=== PATIENT | female | born 1990 | race African-American/Black ===

== ENCOUNTER 2019-10-08 12:16 | Emergency (ER) | payer OTHER ==
[~2019-10-08] VITALS: Ht 160 cm; Wt 40.8 kg
[~2019-10-08 12:16] MED LIST: AMOXIL250 MG ORAL; METRONIDAZOLE500 MG ORAL; RANITIDINE HCL150 MG ORAL; ZOFRAN4 MG ORAL
--- NOTE | 2019-10-08 12:30 | NUR ---
ED Nurse Note: patient walked into ED from home c/o abdominal pain and nausea, vomiting for 4 days. patient also reports she was not able to void for 3 days. patient is alert awake x4 ambulatory breathing unlabored and even, speaking in full sentences. patient placed in hospital gown.
[2019-10-08] MEDS ORDERED: Lidocaine 2% Visc 15ml soln ORAL ONE (12:45)
[2019-10-08] MEDS ORDERED: Morphine Sulfate 4mg/ml Inj (IV USE ONLY) IVP ONE (12:45)
[2019-10-08] MEDS ORDERED: Dicyclomine HCl 10mg/5ml oral soln ORAL ONE (12:45)
[2019-10-08] MEDS ORDERED: Mylanta II UD 30ml ORAL ONE (12:45)
[2019-10-08 13:10] LABS: HEMOGLOBIN 14.3 G/DL (12.0-16.0); MEAN CORPUSCULAR VOLUME 89 FL (80-99); PLATELET COUNT 294 K/UL (150-450); RED BLOOD COUNT 4.47 M/UL (4.20-5.40); RED CELL DISTRIBUTION WIDTH 10.4 % (11.6-14.8); WHITE BLOOD COUNT 13.3 K/UL (4.8-10.8)
[2019-10-08 13:20] LABS: ANION GAP 13 mmol/L (5-15); BLOOD UREA NITROGEN 22 mg/dL (7-18); CALCIUM 9.6 MG/DL (8.5-10.1); CARBON DIOXIDE 27 MMOL/L (21-32); CHLORIDE 101 MMOL/L (98-107); SODIUM 141 MMOL/L (136-145)
[2019-10-08 13:31] LABS: ALANINE AMINOTRANSFERASE 21 U/L (12-78); ALBUMIN 4.8 G/DL (3.4-5.0); ALBUMIN/GLOBULIN RATIO 1.2 (1.0-2.7); ALKALINE PHOSPHATASE 62 U/L (46-116); ASPARTATE AMINO TRANSFERASE 13 U/L (15-37); BILIRUBIN,TOTAL 1.7 MG/DL (0.2-1.0)
[2019-10-08 13:33] LABS: BILIRUBIN,DIRECT 0.3 MG/DL (0.0-0.3)
[2019-10-08 13:42] VITALS: BP 126/70
--- NOTE | 2019-10-08 14:05 | NUR ---
ED Nurse Note: notified to Dr. Weber that patient reported she has not been voiding for 3 days, patinet's abdomen not distended. Dr. Weber at bedside. patient reports she does not have the urge to void at this time.
[2019-10-08] MEDS ORDERED: ONDANSETRON ODT4 MG BC (14:18)
[2019-10-08] MEDS ORDERED: FAMOTIDINE20 MG ORAL (14:18)
[2019-10-08 14:31] VITALS: BP 126/70
--- NOTE | 2019-10-08 14:49 | Emergency Room Report ---
History of Present Illness General Chief Complaint: Vomiting Source: Patient Present Illness HPI 29-year-old female presents ED with abdominal pain and vomiting. Started 3 days ago. Pain is epigastric, sharp, 7 out of 10, nonradiating. Denies fevers or chills. Denies chest pain. Denies any diarrhea. Denies any alcohol or drug use. No other aggravating relieving factors. Denies any other associated symptoms Allergies: Coded Allergies: PROMETHAZINE (Unverified Allergy, Unknown, 11/11/14) COVID-19 Screening Contact w/high risk pt: No Recent Travel to affected area: No Experienced COVID-19 symptoms?: No COVID-19 Testing performed MAT PACKER: No Patient History Past Medical History: GERD Past Surgical History: none Pertinent Family History: none Social History: Denies: smoking, alcohol use, drug use Last Menstrual Period: 09/11/2019 Now: No Immunizations: UTD Reviewed Nursing Documentation: PMH: Agreed; PSxH: Agreed Nursing Documentation-PMH Past Medical History: No Stated History Hx Gastrointestinal Problems: Yes - Gastritis Review of Systems All Other Systems: negative except mentioned in HPI Physical Exam Vital Signs Date Time Temp Pulse Resp B/P (MAP) Pulse Ox O2 Delivery O2 Flow Rate FiO2 10/08/19 12:25 97.9 106 16 109/79 (89) 100 Room Air Sp02 EP Interpretation: reviewed, normal General Appearance: no apparent distress, alert, GCS 15, non-toxic Head: normocephalic, atraumatic Eyes: bilateral eye normal inspection, bilateral eye PERRL ENT: hearing grossly normal, normal pharynx, no angioedema, normal voice Neck: full range of motion, supple/symm/no masses Respiratory: chest non-tender, lungs clear, normal breath sounds, speaking full sentences Cardiovascular #1: regular rate, rhythm, no edema Cardiovascular #2: 2+ carotid (R), 2+ carotid (L), 2+ radial (R), 2+ radial (L) , 2+ dorsalis pedis (R), 2+ dorsalis pedis (L) Gastrointestinal: normal bowel sounds, soft, non-distended, no guarding, no rebound, tenderness - epigastric Rectal: deferred Genitourinary: normal inspection, no CVA tenderness Musculoskeletal: back normal, normal range of motion, gait/station normal, non- tender Neurologic: alert, motor strength/tone normal, oriented x3, sensory intact, responsive, speech normal Psychiatric: judgement/insight normal, memory normal, mood/affect normal, no suicidal/homicidal ideation Reflexes: 3+ bicep (R), 3+ bicep (L), 3+ tricep (R), 3+ tricep (L), 3+ knee (R) , 3+ knee (L) Lymphatic: no adenopathy Medical Decision Making Diagnostic Impression: Primary Impression: Gastritis Qualified Codes: K29.00 - Acute gastritis without bleeding ER Course Hospital Course 29-year-old F presents to ED with epigastric pain with N/V. differential diagnosis: gastritis, SBO, cholecystits Clinical course Patient placed on stretcher. On gambling monitor. After initial history and physical I ordered labs, IV fluids, Zofran, pepcid and pain meds Labs - minimal leukocytosis, K 3.0, LFTs normal Upon reassessment, patient states pain has improved. findings consistent with gastritis. K repleted Safe for discharge for close outpatient follow-up. I feel this is a highly complex case requiring extensive working including EKG/ Rhythm strip, Xray/CT/US, Blood/urine lab work, repeat exams while in ED, and administration of strong opiates/narcotics for pain control, admission to hospital or close patient follow up. Diagnosis - gastritis Stable and discharged to home with prescriptions for pepicid, zofran. Followup with PMD. Return to ED if symptoms recur or worsen Labs Test 10/08/19 12:55 White Blood Count 13.3 K/UL (4.8-10.8) Red Blood Count 4.47 M/UL (4.20-5.40) Hemoglobin 14.3 G/DL (12.0-16.0) Hematocrit 40.0 % (37.0-47.0) Mean Corpuscular Volume 89 FL (80-99) Mean Corpuscular Hemoglobin 32.1 PG (27.0-31.0) Mean Corpuscular Hemoglobin Concent 35.8 G/DL (32.0-36.0) Red Cell Distribution Width 10.4 % (11.6-14.8) Platelet Count 294 K/UL (150-450) Mean Platelet Volume 7.8 FL (6.5-10.1) Neutrophils (%) (Auto) % (45.0-75.0) Lymphocytes (%) (Auto) % (20.0-45.0) Monocytes (%) (Auto) % (1.0-10.0) Eosinophils (%) (Auto) % (0.0-3.0) Basophils (%) (Auto) % (0.0-2.0) Differential Total Cells Counted 100 Neutrophils % (Manual) 87 % (45-75) Lymphocytes % (Manual) 6 % (20-45) Monocytes % (Manual) 7 % (1-10) Eosinophils % (Manual) 0 % (0-3) Basophils % (Manual) 0 % (0-2) Band Neutrophils 0 % (0-8) Platelet Estimate Adequate Platelet Morphology Normal Red Blood Cell Morphology Normal Sodium Level 141 MMOL/L (136-145) Potassium Level 3.0 MMOL/L (3.5-5.1) Chloride Level 101 MMOL/L (98-107) Carbon Dioxide Level 27 MMOL/L (21-32) Anion Gap 13 mmol/L (5-15) Blood Urea Nitrogen 22 mg/dL (7-18) Creatinine 1.0 MG/DL (0.55-1.30) Estimat Glomerular Filtration Rate > 60 mL/min (>60) Glucose Level 133 MG/DL (74-106) Calcium Level 9.6 MG/DL (8.5-10.1) Total Bilirubin 1.7 MG/DL (0.2-1.0) Direct Bilirubin 0.3 MG/DL (0.0-0.3) Aspartate Amino Transf (AST/SGOT) 13 U/L (15-37) Alanine Aminotransferase (ALT/SGPT) 21 U/L (12-78) Alkaline Phosphatase 62 U/L (46-116) Total Protein 8.9 G/DL (6.4-8.2) Albumin 4.8 G/DL (3.4-5.0) Globulin 4.1 g/dL Albumin/Globulin Ratio 1.2 (1.0-2.7) Lipase 74 U/L (73-393) Last Vital Signs Date Time Temp Pulse Resp B/P (MAP) Pulse Ox O2 Delivery O2 Flow Rate FiO2 10/08/19 14:31 97.9 62 16 126/70 100 Room Air Status: improved Disposition: HOME, SELF-CARE Condition: Stable Scripts Ondansetron Odt* (ZOFRAN ODT*) 4 Mg Tab.rapdis 4 MG BC EVERY 6 HOURS PRN for Nausea & Vomiting, #10 TAB 0 Refills Prov: Maurice Weber MD 10/08/19 Famotidine* (Pepcid 20mg tablet*) 20 Mg Tablet 20 MG ORAL DAILY, #30 TAB 0 Refills Prov: Maurice Weber MD 10/08/19 Referrals: [facility],REFERRING (PCP) [facility] Patient Instructions: Gastritis, Adult, [id number] Maurice Weber MD October 08, 2019 14:49
== END 2019-10-08 14:31 | disposition home or self-care (01) ==
LOC: EMR 12:44
DX: K29.00 Acute gastritis without bleeding (principal); Z88.8 Allergy status to other drugs, medicaments and biological substances; K21.9 Gastro-esophageal reflux disease without esophagitis; D72.829 Elevated white blood cell count, unspecified
CPT/HCPCS: 36415; 80053; 82248; 83690; 85007; 85025; 96361; 96374; 96375; J2270; J2405; J7030; S0028; Z7502; 99284; J8499

== ENCOUNTER 2019-11-23 23:26 | Emergency (ER) | payer MEDICAID, OTHER ==
[~2019-11-23] VITALS: Ht 160 cm; Wt 43.5 kg
[~2019-11-23 23:26] MED LIST changes: +FAMOTIDINE20 MG ORAL; +ONDANSETRON ODT4 MG BC
[2019-11-23 23:55] VITALS: BP 111/72
[2019-11-24] MEDS ORDERED: IBUPROFEN600 M1 ORAL (00:05)
[2019-11-24] MEDS ORDERED: LIDODERM700 M1 TOPIC (00:05)
[2019-11-24] MEDS ORDERED: ROBAXIN-750750 MG PO (00:11)
[2019-11-24 00:28] VITALS: BP 111/72
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
== END 2019-11-24 00:28 | disposition home or self-care (01) ==
LOC: EMR 23:55
DX: S39.012A Strain of muscle, fascia and tendon of lower back, initial encounter (principal); S16.1XXA Strain of muscle, fascia and tendon at neck level, initial encounter; V43.62XA Car passenger injured in collision with other type car in traffic accident, initial encounter; Y92.410 Unspecified street and highway as the place of occurrence of the external cause; Z88.6 Allergy status to analgesic agent
CPT/HCPCS: 99282

== ENCOUNTER 2019-12-15 23:42 | Emergency (ER) | payer OTHER ==
[~2019-12-15] VITALS: Ht 160 cm; Wt 42.6 kg
[~2019-12-15 23:42] MED LIST changes: +IBUPROFEN600 M1 ORAL; +LIDODERM700 M1 TOPIC; +ROBAXIN-750750 MG PO
[2019-12-15 23:50] VITALS: BP 110/72
[2019-12-16] MEDS ORDERED: Tetracaine 0.5% Opth 4ml Soln ONE (00:18)
[2019-12-16] MEDS ORDERED: Fluorescein Strips ONE (00:18)
[2019-12-16] MEDS ORDERED: Cyclopentolate 1% Opth Sol 2ml ONE (00:24)
[2019-12-16] MEDS ORDERED: Fluorescein Strips LEFT EYE ONE (00:30)
[2019-12-16] MEDS ORDERED: Tetracaine 0.5% Opth 4ml Soln LEFT EYE ONE (00:30)
[2019-12-16] MEDS ORDERED: CYCLOGYL2 ML OP (00:41)
[2019-12-16] MEDS ORDERED: Tetanus/Diptheria/Pertussis IM ONE ×2 (01:15→01:17)
[2019-12-16] MEDS ORDERED: Cyclopentolate 1% Opth Sol 2ml LEFT EYE ONE (01:30)
[2019-12-16 01:40] VITALS: BP 112/85
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
== END 2019-12-16 01:40 | disposition home or self-care (01) ==
LOC: EMR 12-16 00:29
DX: S00.83XA Contusion of other part of head, initial encounter (principal); H20.9 Unspecified iridocyclitis; S01.81XA Laceration without foreign body of other part of head, initial encounter; W22.8XXA Striking against or struck by other objects, initial encounter; Y92.9 Unspecified place or not applicable; Z88.8 Allergy status to other drugs, medicaments and biological substances; Z23 Encounter for immunization
CPT/HCPCS: 70480; 90471; 90715; Z7502; 99284

== ENCOUNTER 2020-03-14 17:28 | Emergency (ER) | payer OTHER ==
[~2020-03-14] VITALS: Ht 160 cm; Wt 44.0 kg
[~2020-03-14 17:28] MED LIST changes: +CYCLOGYL2 ML OP
[2020-03-14 17:47] VITALS: BP 123/73
--- NOTE | 2020-03-14 17:47 | NUR ---
ED Nurse Note: Patient from home and walked in due to lower abd pain with N/V since yesterday. Also c/o bodyaches, fatigue and reports that she has not been tested yet for covid. AAO x4, ambulates with steady gait with non labored breathing.
[2020-03-14] MEDS ORDERED: Ketorolac 30mg Inj IV ONE (18:00)
--- NOTE | 2020-03-14 18:05 | Emergency Room Report ---
History of Present Illness General Chief Complaint: Abdominal Pain Source: Patient Present Illness HPI 30-year-old female with history of gastritis here complaining of 1 day of epigastric abdominal pain rating a 7 out of 10 without radiation. Also reports that she started feeling nauseated yesterday and today had about 10 bouts of nonbloody emesis. Denies any diarrhea constipation. Complains of fever and c hills. Denies any cough or congestion however complains of shortness of breath x2 days. Denies tobacco smoking alcohol intake however reports that she smokes marijuana. Reports that last night she could not sleep because of her symptoms and she took a pill that her friend told her that is Xanax however patient believes that it was a fake Xanax. Reports that she is currently on her menstruation. Denies all urinary symptoms. Allergies: Coded Allergies: PROMETHAZINE (Unverified Allergy, Unknown, 11/11/14) COVID-19 Screening Contact w/high risk pt: No Recent Travel to affected area: No Experienced COVID-19 symptoms?: Yes COVID-19 Testing performed GAS STATION SUPERVISOR: No Patient History Past Medical History: see triage record Past Surgical History: none Pertinent Family History: none Now: No Immunizations: UTD Reviewed Nursing Documentation: PMH: Agreed; PSxH: Agreed Nursing Documentation-PMH Past Medical History: No History, Except For Hx Gastrointestinal Problems: Yes - GASTRITIS Review of Systems All Other Systems: negative except mentioned in HPI Physical Exam Vital Signs Date Time Temp Pulse Resp B/P (MAP) Pulse Ox O2 Delivery O2 Flow Rate FiO2 03/14/20 17:37 98.2 61 18 116/77 (90) 97 Room Air Sp02 EP Interpretation: reviewed, normal General Appearance: no apparent distress, alert, GCS 15, non-toxic, mild distress Head: normocephalic, atraumatic Eyes: bilateral eye normal inspection, bilateral eye PERRL ENT: hearing grossly normal, normal pharynx, no angioedema, normal voice Neck: full range of motion, supple/symm/no masses Respiratory: chest non-tender, lungs clear, normal breath sounds, no rhonchi, no respiratory distress, no retraction, no wheezing, speaking full sentences Cardiovascular #1: regular rate, rhythm, no edema, no murmur Cardiovascular #2: 2+ carotid (R), 2+ carotid (L), 2+ radial (R), 2+ radial (L), 2+ dorsalis pedis (R), 2+ dorsalis pedis (L) Gastrointestinal: non tender, soft, no mass, no organomegaly, no peritonitis, no bruit, no guarding, no hernia Rectal: deferred Genitourinary: no CVA tenderness Musculoskeletal: back normal, no calf tenderness Neurologic: alert, motor strength/tone normal, oriented x3, sensory intact, responsive, speech normal Psychiatric: judgement/insight normal, memory normal, mood/affect normal, no suicidal/homicidal ideation Skin: no rash Lymphatic: no adenopathy Medical Decision Making PA Attestation All diagnoses and treatment plans were reviewed and discussed with my supervising physician Dr. Wayne Diagnostic Impression: Primary Impression: Cannabis hyperemesis syndrome concurrent with and due to cannabis abuse Additional Impression: Gastritis ER Course 30-year-old female with history of gastritis here complaining of 1 day of epigastric abdominal pain rating a 7 out of 10 without radiation. Also reports that she started feeling nauseated yesterday and today had about 10 bouts of nonbloody emesis. Denies any diarrhea constipation. Complains of fever and chills. Denies any cough or congestion however complains of shortness of breath x2 days. Denies tobacco smoking alcohol intake however reports that she smokes marijuana. Reports that last night she could not sleep because of her symptoms and she took a pill that her friend told her that is Xanax however patient believes that it was a fake Xanax. Reports that she is currently on her menstruation. Denies all urinary symptoms. Ddx considered but are not limited to: appendicitis, cholecystis, gastritis, gastroenteritis, UTI, pyelonephritis, SBO, diverticulitis, influenza with GI manifestation, IL, complication with , cannabis hyperemesis, pancreatitis Vital signs: are WNL, pt. is afebrile H&PE are most consistent with: Cannabis hyperemesis, gastritis ORDERS: abdominal CT, abdominal pain set, rapid Covid, rapid influenza, Zofran, Pepcid, dicyclomine ED INTERVENTIONS: NS bolus, Zofran, Pepcid, Toradol DISCHARGE: At this time pt. is stable for d/c to home. Will provide printed patient care instructions, and any necessary prescriptions. Care plan and follow up instructions have been discussed with the patient prior to discharge. Take medication as directed, follow primary care provider, avoid using marijuana, if worsening symptoms return to the emergency room Chest X-Ray Diagnostic Results Chest X-Ray Diagnostic Results : Chest X-Ray Ordered: Yes # of Views/Limited/Complete: 1 View Indication: Other EP Interpretation: Yes PA Xray: Interpretation reviewed, by supervising MD, and agrees with findings. Interpretation: no consolidation, no effusion, no pneumothorax Impression: No acute disease Electronically Signed by: Nicolle Hendrickson PA-C Last Vital Signs Date Time Temp Pulse Resp B/P (MAP) Pulse Ox O2 Delivery O2 Flow Rate FiO2 03/14/20 17:37 98.2 61 18 116/77 (90) 97 Room Air Disposition: HOME, SELF-CARE Condition: Stable Referrals: [facility],REFERRING (PCP) Patient Instructions: Abdominal Pain, Adult, Cannabis Use Disorder Additional Instructions: Take medication as directed, follow primary care provider, avoid using marijuana, if worsening symptoms return to the emergency room Nicolle Huang Mar 14, 2020 18:05
--- NOTE | 2020-03-14 18:30 | NUR ---
ED Nurse Note: 20' IV line established in pt's R forearm. blood, COVID and influenza swabs collected and sent to lab. pt still unable to provide urine sample at this time. bedside cammode set up at pt bedside for use when ready
--- NOTE | 2020-03-14 18:42 | Diagnostic Imaging Report ---
INDICATION: Shortness of breath. COMPARISON: Unavailable. Findings/impression: Single view demonstrates a normal cardiomediastinal silhouette. No focal consolidation, pleural effusion or pneumothorax. The visualized osseous structures are within normal limits.
[2020-03-14 18:46] LABS: HEMATOCRIT 41.4 % (37.0-47.0); LYMPHOCYTES % (AUTO) 5.4 % (20.0-45.0); MEAN CORPUSCULAR VOLUME 97 FL (80-99); NEUTROPHILS % (AUTO) 88.7 % (45.0-75.0); PLATELET COUNT 277 K/UL (150-450); RED BLOOD COUNT 4.25 M/UL (4.20-5.40); RED CELL DISTRIBUTION WIDTH 11.4 % (11.6-14.8); WHITE BLOOD COUNT 10.3 K/UL (4.8-10.8)
[2020-03-14 18:47] LABS: BASOPHILS % (AUTO) 0.7 % (0.0-2.0); MONOCYTES % (AUTO) 5.2 % (1.0-10.0)
--- NOTE | 2020-03-14 18:56 | NUR ---
ED Nurse Note: IV fluids almost done. RN asked patient for urine sample and patient states that she is going to try in a few minutes.
--- NOTE | 2020-03-14 19:04 | NUR ---
HAND-OFF: Report given to Bonnie CHAPMAN.
[2020-03-14 19:07] LABS: ANION GAP 19 mmol/L (5-15); BLOOD UREA NITROGEN 18 mg/dL (7-18); CALCIUM 9.8 MG/DL (8.5-10.1); CARBON DIOXIDE 19 MMOL/L (21-32); CHLORIDE 102 MMOL/L (98-107); CREATININE 0.9 MG/DL (0.55-1.30); POTASSIUM 3.6 MMOL/L (3.5-5.1); SODIUM 140 MMOL/L (136-145)
[2020-03-14 19:12] LABS: ALANINE AMINOTRANSFERASE 15 U/L (12-78); ALBUMIN 4.8 G/DL (3.4-5.0); ALBUMIN/GLOBULIN RATIO 1.1 (1.0-2.7); ALKALINE PHOSPHATASE 69 U/L (46-116); ASPARTATE AMINO TRANSFERASE 12 U/L (15-37); BILIRUBIN,TOTAL 0.8 MG/DL (0.2-1.0)
--- NOTE | 2020-03-14 19:40 | NUR ---
ED Nurse Note: urine specimen collected and snet to lab
[2020-03-14 20:03] LABS: APPEARANCE,URINE CLOUDY; BILIRUBIN, URINE NEGATIVE (NEGATIVE); COLOR,URINE PALE YELLOW; GLUCOSE, URINE (UA) 3+ (NEGATIVE); KETONES,URINE 4+ (NEGATIVE); LEUKOCYTE ESTERASE ,URINE 1+ (NEGATIVE); NITRITE,URINE NEGATIVE (NEGATIVE); PH,URINE 5 (4.5-8.0); PROTEIN,URINE 3+ (NEGATIVE); UROBILINOGEN,URINE NORMAL MG/DL (0.0-1.0)
[2020-03-14] MEDS ORDERED: FAMOTIDINE20 MG ORAL (20:16)
[2020-03-14] MEDS ORDERED: ZOFRAN4 M1 ORAL (20:16)
[2020-03-14] MEDS ORDERED: DICYCLOMINE HCL10 MG ORAL (20:16)
[2020-03-14 20:23] VITALS: BP 123/73
--- NOTE | 2020-03-14 20:23 | NUR ---
ER DISCHARGE NOTE: Patient is cleared to be discharged per ERMD, pt is aox4, on room air, with stable vital signs. pt was given dc and prescription instructions, pt was able to verbalize understanding, pt id band and iv site removed without complications. pt is able to ambulate with steady gait. pt took all belongings.
== END 2020-03-14 20:22 | disposition home or self-care (01) ==
LOC: EMR 17:48
DX: K29.70 Gastritis, unspecified, without bleeding (principal); F12.19 Cannabis abuse with unspecified cannabis-induced disorder; Z88.8 Allergy status to other drugs, medicaments and biological substances
CPT/HCPCS: 36415; 71045; 80053; 80307; 81003; 81025; 85025; 86710; 87086; 96361; 96374; 96375; G0480; J1885; J2405; J7030; S0028; U0002; Z7502; 99284

== ENCOUNTER 2020-03-15 09:31 | Emergency (ER) | payer OTHER ==
[~2020-03-15] VITALS: Ht 160 cm; Wt 40.8 kg
[~2020-03-15 09:31] MED LIST changes: +DICYCLOMINE HCL10 MG ORAL; +ZOFRAN4 M1 ORAL
[2020-03-15] MEDS ORDERED: Haloperidol Lactate 5 MG in D5W 55 ML IVPB ONE (10:00)
[2020-03-15 10:24] VITALS: BP 121/74
[2020-03-15 10:28] LABS: HEMATOCRIT 40.3 % (37.0-47.0); HEMOGLOBIN 13.3 G/DL (12.0-16.0); MEAN CORPUSCULAR VOLUME 100 FL (80-99); PLATELET COUNT 241 K/UL (150-450); RED BLOOD COUNT 4.03 M/UL (4.20-5.40); RED CELL DISTRIBUTION WIDTH 11.8 % (11.6-14.8); WHITE BLOOD COUNT 11.1 K/UL (4.8-10.8)
--- NOTE | 2020-03-15 10:40 | Emergency Room Report ---
History of Present Illness General Chief Complaint: Vomiting Source: Patient Present Illness HPI Disclaimer: Please note that this report is being documented using DRAGON technology. This can lead to erroneous entry secondary to incorrect interpretation by the dictating instrument. HPI: 30-year-old female presents from home due to nausea and vomiting. She has a history of gastritis and cyclical vomiting. She was seen here yesterday for the same. She had a CT scan which showed no acute pathology. And was discharged home after feeling improved however symptoms did return. She does use marijuana last use was 3 days ago. She denies any fevers. No diarrhea. Unable to tolerate oral intake at home. Abdominal pain is epigastric nonradiating nothing makes it better or worse. Allergies: Coded Allergies: PROMETHAZINE (Unverified Allergy, Unknown, 11/11/14) COVID-19 Screening Contact w/high risk pt: No Recent Travel to affected area: No Experienced COVID-19 symptoms?: No COVID-19 Testing performed DIRECTOR INFORMATION: Yes - 03/14/20 COVID-19 Screening: Negative COVID-19 COVID-19 Testing Source: [email or web address] Patient History Last Menstrual Period: 03/14/20 Reviewed Nursing Documentation: PMH: Agreed; PSxH: Agreed Nursing Documentation-PMH Past Medical History: No History, Except For Hx Gastrointestinal Problems: Yes - GASTRITIS Review of Systems All Other Systems: negative except mentioned in HPI Physical Exam Vital Signs Date Time Temp Pulse Resp B/P (MAP) Pulse Ox O2 Delivery O2 Flow Rate FiO2 03/15/20 09:40 97.0 68 15 121/74 (90) 99 Room Air Sp02 EP Interpretation: reviewed, normal General Appearance: well appearing, other - Patient is actively vomiting Head: normocephalic, atraumatic Eyes: bilateral eye PERRL, bilateral eye EOMI ENT: hearing grossly normal, moist mucus membranes Neck: full range of motion, supple Respiratory: lungs clear, normal breath sounds, no rhonchi, no respiratory distress, no retraction, no wheezing Cardiovascular #1: normal peripheral pulses, regular rate, rhythm, no murmur Gastrointestinal: non tender, soft, non-distended, no guarding Neurologic: alert, oriented x3, no focal defects Skin: normal color, warm/dry Medical Decision Making Diagnostic Impression: Primary Impression: Cannabis hyperemesis syndrome concurrent with and due to cannabis abuse ER Course MDM: Differential included but not limited to cyclical vomiting syndrome, gastritis, intractable vomiting, dehydration to name a few. Clinical course-IV inserted IV fluids given Haldol and Toradol given. Patient no longer had any emesis after being given Haldol. Laboratory studies showed a normal hemoglobin with normal white blood cell count. Reviewed patient's urin alysis from yesterday did show evidence of possible UTI. I was attempting to reassess patient when she eloped from the ER without a formal discharge or reassessment by me. Labs - Laboratory Tests Test 03/15/20 10:05 White Blood Count 11.1 K/UL (4.8-10.8) H Red Blood Count 4.03 M/UL (4.20-5.40) L Hemoglobin 13.3 G/DL (12.0-16.0) Hematocrit 40.3 % (37.0-47.0) Mean Corpuscular Volume 100 FL (80-99) H Mean Corpuscular Hemoglobin 33.1 PG (27.0-31.0) H Mean Corpuscular Hemoglobin Concent 33.1 G/DL (32.0-36.0) Red Cell Distribution Width 11.8 % (11.6-14.8) Platelet Count 241 K/UL (150-450) Mean Platelet Volume 8.6 FL (6.5-10.1) Neutrophils (%) (Auto) % (45.0-75.0) Lymphocytes (%) (Auto) % (20.0-45.0) Monocytes (%) (Auto) % (1.0-10.0) Eosinophils (%) (Auto) % (0.0-3.0) Basophils (%) (Auto) % (0.0-2.0) Differential Total Cells Counted 100 Neutrophils % (Manual) 79 % (45-75) H Lymphocytes % (Manual) 11 % (20-45) L Monocytes % (Manual) 6 % (1-10) Eosinophils % (Manual) 0 % (0-3) Basophils % (Manual) 0 % (0-2) Band Neutrophils 4 % (0-8) Platelet Estimate Adequate Platelet Morphology Normal Macrocytosis 1+ Sodium Level 143 MMOL/L (136-145) Potassium Level 3.7 MMOL/L (3.5-5.1) Chloride Level 107 MMOL/L (98-107) Carbon Dioxide Level 21 MMOL/L (21-32) Anion Gap 15 mmol/L (5-15) Blood Urea Nitrogen 22 mg/dL (7-18) H Creatinine 1.0 MG/DL (0.55-1.30) Estimated Glomerular Filtration Rate > 60 mL/min (>60) Glucose Level 105 MG/DL (74-106) Calcium Level 9.3 MG/DL (8.5-10.1) Total Bilirubin 1.0 MG/DL (0.2-1.0) Aspartate Amino Transferase (AST) 14 U/L (15-37) L Alanine Aminotransferase (ALT) 13 U/L (12-78) Alkaline Phosphatase 58 U/L (46-116) Total Protein 8.1 G/DL (6.4-8.2) Albumin 4.3 G/DL (3.4-5.0) Globulin 3.8 g/dL Albumin/Globulin Ratio 1.1 (1.0-2.7) Lipase 67 U/L (73-393) L Plan- patient elopded Last Vital Signs Date Time Temp Pulse Resp B/P (MAP) Pulse Ox O2 Delivery O2 Flow Rate FiO2 03/15/20 10:24 68 15 Room Air 03/15/20 10:24 97.0 121/74 99 Disposition: ELOPED Referrals: [facility],REFERRING (PCP) Cy Mcduffie M.D. Mar 15, 2020 10:40
[2020-03-15] MEDS ORDERED: Ketorolac 30mg Inj IV ONE (10:45)
[2020-03-15 10:46] LABS: ANION GAP 15 mmol/L (5-15); BLOOD UREA NITROGEN 22 mg/dL (7-18); CALCIUM 9.3 MG/DL (8.5-10.1); CARBON DIOXIDE 21 MMOL/L (21-32); CHLORIDE 107 MMOL/L (98-107); POTASSIUM 3.7 MMOL/L (3.5-5.1); SODIUM 143 MMOL/L (136-145)
[2020-03-15 10:58] LABS: ALANINE AMINOTRANSFERASE 13 U/L (12-78); ALBUMIN 4.3 G/DL (3.4-5.0); ALBUMIN/GLOBULIN RATIO 1.1 (1.0-2.7); ALKALINE PHOSPHATASE 58 U/L (46-116); ASPARTATE AMINO TRANSFERASE 14 U/L (15-37)
[2020-03-15 11:30] VITALS: BP 120/72
== END 2020-03-15 11:43 | disposition left against medical advice (07) ==
LOC: EMR 10:19
DX: F12.188 Cannabis abuse with other cannabis-induced disorder (principal); R11.2 Nausea with vomiting, unspecified; Z88.8 Allergy status to other drugs, medicaments and biological substances; R10.13 Epigastric pain
CPT/HCPCS: 36415; 80053; 83690; 85007; 85025; 96361; 96374; 96375; J1630; J1885; J7030; Z7502; 99284